=== PATIENT | male | born 1965 | race Caucasian/White ===

== ENCOUNTER 2019-11-27 16:17 | Inpatient (IN) | payer BC ==
[~2019-11-27] VITALS: Ht 180.3 cm; Wt 109.0 kg
--- NOTE | 2019-11-27 16:17 | NUR ---
PT IMMEADIATELY TO TREATMENT AREA VIA WC
--- NOTE | 2019-11-27 16:30 | NUR ---
PT STATES HAS BEEN UNDER ALOT OF STRESS THE LAST FEW MONTHS. WAS OUT WALKING AROUND [place] TO BUY A HOUSE WHEN CHEST PAIN AND TINGLING IN FINGERS BEGAN
[2019-11-27 17:02] LABS: HEMATOCRIT 43.1 % (39.0-50.0); HEMOGLOBIN 14.5 g/dl (14.0-18.0); IMMATURE GRANULOCYTES 0.8 % (0.0-5.0); MEAN CELL VOLUME 88.7 fL CALC (80.0-100.0); MEAN CORPUSCULAR HGB 29.8 pG CALC (26.0-32.0); MEAN CORPUSCULAR HGB CONC 33.6 g/L CALC (32.0-36.0); NEUT# 15.32 thou/uL (1.82-7.42); RED BLOOD COUNT 4.86 mill/uL (4.70-6.10); RED CELL DISTRI WIDTH 12.4 % (11.5-15.5)
[2019-11-27 17:03] LABS: URINE BILIRUBIN - DIPSTICK NEGATIVE (NEGATIVE); URINE BLOOD DIPSTICK NEGATIVE (NEGATIVE); URINE COLOR YELLOW; URINE GLUCOSE - DIPSTICK NEGATIVE (NEGATIVE); URINE KETONE NEGATIVE (NEGATIVE); URINE LEUK ESTERASE NEGATIVE (NEGATIVE); URINE NITRITE - DIPSTICK NEGATIVE (Negative); URINE PROTEIN - DIPSTICK NEGATIVE (NEG-TRACE); URINE SPECIFIC GRAVITY >=1.030; URINE UROBILINOGEN - DIPSTICK 0.2 E.U./dL (0.2)
[2019-11-27 17:14] LABS: ALBUMIN 4.5 g/dL (3.2-5.0); ALKALINE PHOSPHATASE 102 u/l (38-126); ANION GAP 14 (6-22 (CALC)); BILIRUBIN, TOTAL 1.6 mg/dL (0.0-1.4); BUN 22 mg/dL (9-20); BUN/CREATININE RATIO 21 (12-20 (CALC)); CARBON DIOXIDE 24 mmol/l (22-30); CHLORIDE 104 mmol/l (95-108); CREATININE 1.1 mg/dL (0.7-1.3); GFR > 60 ML/MIN (>=60 (CALC)); GFR FOR AFR.AMER. > 60 ML/MIN (>=60 (CALC)); SGOT/AST 33 u/l (17-59); SODIUM 138 mmol/l (137-146); TOTAL PROTEIN 7.9 g/dL (6.3-8.2)
[2019-11-27 17:15] LABS: BARBITURATES NEGATIVE (NEGATIVE); COCAINE NEGATIVE (NEGATIVE); METHADONE NEGATIVE (NEGATIVE); OXCYCODONE NEGATIVE (NEGATIVE); TETRAHYDROCANNABIONOL NEGATIVE (NEGATIVE); TRICYLIC ANTIDEPRESSANTS NEGATIVE (NEGATIVE)
[2019-11-27 17:26] LABS: MYOGLOBIN 107 ng/mL (0 - 121)
--- NOTE | 2019-11-27 17:27 | NUR ---
PT RESTING QUIETLY ON STRETCHER. HR REMAINS IN THE 120'S AFTER MEDICATED
[2019-11-27 17:45] LABS: TSH, 3RD GENERATION 1.42 uIU/mL (0.47 - 4.68)
--- NOTE | 2019-11-27 18:46 | NUR ---
PT RESTING QUIETLY ON STRESTCHER, WAITING XRAY RESULTS
--- NOTE | 2019-11-27 19:30 | NUR ---
PT AGREES TO BE ADMITTED. AWAITING ADMISSION ORDERS
--- NOTE | 2019-11-27 20:00 | NUR ---
AWAITING ADMISSION ORDERS FOR ADMISSION
--- NOTE | 2019-11-27 20:54 | NUR ---
AWAITING ROOM ASSIGNEMENT FOR REPORT AND ADMISSION
--- NOTE | 2019-11-27 21:29 | NUR ---
WAITING BED ASSIGNEMNT FOR ADMISSION. Lai PUGH SUPERVISION AWARE
--- NOTE | 2019-11-27 21:43 | NUR ---
REPORT TO FELICIA MARTÍNEZ. PT TO GO TO MS 289
--- NOTE | 2019-11-27 22:00 | NUR ---
TO MS VIA W/C. TELEMERTY IN PLACE. PT THANKED STAFF FOR CARE
[2019-11-27 22:03] VITALS: BP 132/84
--- NOTE | 2019-11-27 22:15 | NUR ---
PT ARRIVED TO UNIT @ 2202 VIA WC, ACCOMPANIED BY RN. REPORT AND SBAR RECEIVED PRIOR TO PT'S ARRIVAL FROM Brianna BYRNE RN @ 2141. PT ADMITTED TO ROOM 289. ORIENTED TO UNIT AND ROOM. PLAN OF CARE REVIEWED. DENIES NEEDS @ THIS TIME. CALL ALLEN WITHIN REACH. AGREES TO CALL PRN.
[2019-11-27 23:34] VITALS: BP 91/55
[2019-11-28] VITALS (25 sets, daily range): BP systolic 127–170; BP diastolic 56–101
--- NOTE | 2019-11-28 00:08 | NUR ---
TEMP 100.5, PT C/O COLD. OTHERWISE ASYMPTOMATIC. WILL CON'T TO MONITOR.
--- NOTE | 2019-11-28 01:05 | NUR ---
ORAL TEMP 101.9, CON'T TO C/O "COLD", REMAINS ASYMPTOMATIC OTHERWISE.
--- NOTE | 2019-11-28 01:15 | NUR ---
ELEVATED TEMP REPORTED TO DR. FREDERICK ALONG W/ PT'S OTHER HEMODYNAMICS AND REVIEW OF RECENT LAB RESULTS AND RADIOLOGIC EXAMS. ORDERS FOR LACTIC ACID AND BLOOD CX'S NOW, U/A, APAP PRN FOR FEVER, AND ROCEPHIN 1GM IV DAILY- TO BE STARTED AFTER BCX AND U/A COLLECTED.
--- NOTE | 2019-11-28 01:30 | NUR ---
[employer]IAL [employer] COMMUNITY MANAGER IN TO DRAW LACTIC ACID AND SECOND SET OF BLOOD CX, SPECIMEN CUP PROVIDED TO PT FOR URINE SAMPLE. PT DECLINES APAP, STATES "TYLENOL CAN UPSET MY STOMACH AND I FEEL FINE." OFFERED PT PRN ATIVAN FOR ANXIETY, PT AGREES, SEE MAR FOR ADMIN.
--- NOTE | 2019-11-28 03:45 | NUR ---
TEMP 101.2, URINE COLLECTED AND SENT TO LAB AND ROCEPHIN 1GM IV ADMINISTERED, SEE MAR. PT CON'T TO DECLINE APAP FOR FEVER. DENIES FURTHER NEEDS @ THIS TIME. CALL ALLEN WITHIN REACH, AGREES TO CALL PRN.
[2019-11-28 04:49] LABS: URINE BILIRUBIN - DIPSTICK NEGATIVE (NEGATIVE); URINE BLOOD DIPSTICK TRACE-INTACT (NEGATIVE); URINE CLARITY CLEAR; URINE COLOR YELLOW; URINE GLUCOSE - DIPSTICK NEGATIVE (NEGATIVE); URINE KETONE NEGATIVE (NEGATIVE); URINE LEUK ESTERASE NEGATIVE (Negative); URINE NITRITE - DIPSTICK NEGATIVE (Negative); URINE PH 5.5 (4.5-8.0); URINE PROTEIN - DIPSTICK NEGATIVE (NEG-TRACE); URINE SPECIFIC GRAVITY 1.025; URINE UROBILINOGEN - DIPSTICK 0.2 E.U./dL (0.2)
--- NOTE | 2019-11-28 07:32 | NUR ---
SPOKE WITH DR ROSEN RE: NO BEDS AVAILABLE AT [facility]WHERE WOULD U LIKE US TO TRY , [facility]. THEIR BEDS ARE FULL EXPECTING DISCHARGES WILL KEEP US INFORMED.
--- NOTE | 2019-11-28 07:43 | NUR ---
PT ENDORSED TO Patrick APONTE LPN, DURING HAND-OFF REPORT CRITICAL LAB VALUE CALLED. TROPONIN 0.260. PT DENIES CHEST PAIN. VSS. NO DISTRESS. DR. ROSEN INFORMED AND ORDERS RECEIVED TO TX TO [facility], EKG NOW, CONSULT CARDIOLOGY ONCE RECEIVED AT RECEIVING FACILITY. EDUCATION PROVIDED TO PT ON LAB RESULTS AND TRANSFER. PT VERBALIZES UNDERSTANDING. CALL ALLEN WITHIN REACH, AGREES TO CALL PRN.CARE OF PT TURNED OVER TO Patrick APONTE LPN.
--- NOTE | 2019-11-28 07:45 | NUR ---
ASSESSMENT IS COMPLETED: IV SITE IS FREE FROM REDNESS OR EDEMA. HR IS IRREGULAR, FAST. ABD IS SOFT WITH ACTIVE BS. BREATH SOUNDS ARE CLEAR,BILATERALLY.NO C/O SOB OR CP. TELE MONITOR IN PLACE. INFORMED OF THE TRANSFER TO ANOTHER HOSPITAL DUE TO TROPONIN ELEVATION. VERBALIZED UNDERSTANDING
--- NOTE | 2019-11-28 08:02 | NUR ---
CALLED [facility] WAS TOLD THEY WERE FULL. TO TRY A DIFFERENT HOSPITAL
--- NOTE | 2019-11-28 08:06 | NUR ---
CALLED [facility] REGARDING A TRANSFER TO THERE FACILITY. SPOKE TO THE PC SUPPORT SPECIALIST AND WAS TOLD DAIRY AND FOOD LABORATORY ASSISTANT WAS ON A CONFERENCE CALL. GAVE NAME OF PT AND CALL BACK NUMBER TO PC SUPPORT SPECIALIST. WAS TOLD TO GIVE HER ABOUT 5 MINUTES AND THEY WILL CALL BACK TO GET REST OF INFORMATION ON PT. CALLED NUMBER AT [phone].
--- NOTE | 2019-11-28 08:10 | NUR ---
[facility] PERFORMANCE CONSULTANT TREY CALLED BACK AT [phone] GAVE HER ALL INFORMATION ON THIS PT FOR TRANSFER. WAS TOLD BY TREY THAT THEY WERE FULL WELL BUT THEY SHOULD HAVE SOME PENDING DISCHARGES. WAS TOLD THEY WILL KEEP US UPDATED REGARDING THE TRANSFER. ALSO WAS TOLD TO FAX A FACE SHEET FOR THE PT TO [phone]. ALREADY FAX AND RECEIVED FACE SHEET.
--- NOTE | 2019-11-28 09:17 | NUR ---
SPOKE WTIH DR ROSEN RE:NO BEDS IN [facility] WILL KEEP CHECKING. INQUIRED IF SHE WANTED ME TO SEND THE PT TO ICU , STATED" YES THAT IS FINE I AM N MY WAY". NEW ORDERS FOR MEDICATION TO BE GIVEN. ALSO EKG. GAVE VERBAL REPORT TO [facility] DELIA DUARTE. TRANSPORTED VIA BED, PT IS ASYMPTOMATIC. PT INQUIRED " IF HE COULD WALK OVER THERE" EXPLAINED HE NEEDED TO GO OVER IN THE BED UNTIL WE FIND A PLACE. PT ALSO INQUIRED ABOUT " ANOTHER HOSPITAL [place] FROM" INSTRUCTED HIM TO TALK WITH DR ROSEN WHEN SHE COMES.
--- NOTE | 2019-11-28 09:33 | NUR ---
PT TRANSFERED TO ICU3 FROM [facility]. BEDSIDE REPORT RECEIVED FROM DUNIA ARAUJO. PT PLACED ON MONITOR. EKG COMPLETED. NO DISTRESS NOTED. PT ON RA. PT DENIES CHEST PAIN AT THIS TIME. NO SOB NOTED. PT EDUCATED ON ICU STATUS. WILL CONTINUE TO MONITOR.
--- NOTE | 2019-11-28 09:47 | NUR ---
DR NOLAN CALLED. NO ANSWER
--- NOTE | 2019-11-28 10:20 | NUR ---
DR. NOLAN AT BEDSIDE TO ASSESS PT
[2019-11-28 10:28] LABS: HEMATOCRIT 41.8 % (39.0-50.0); HEMOGLOBIN 13.8 g/dl (14.0-18.0); IMMATURE GRANULOCYTES 0.4 % (0.0-5.0); MEAN CELL VOLUME 89.9 fL CALC (80.0-100.0); MEAN CORPUSCULAR HGB 29.7 pG CALC (26.0-32.0); RED BLOOD COUNT 4.65 mill/uL (4.70-6.10)
[2019-11-28 11:21] LABS: ACT PARTIAL THROMBO TIME 29.4 SECONDS (20.0-32.5); INTERNATIONAL NORMALIZED RATIO 1.1 RATIO (0.7-1.3); PROTHROMBIN TIME 11.5 SECONDS (9.0-12.5)
--- NOTE | 2019-11-28 12:45 | NUR ---
PT RESTING IN BED WITH EYES CLOSED. NO DISTRESS NOTED. PT DENIES CHEST PAIN AT THIS TIME. HEPARIN GTT INFUSING. WILL CONTINUE TO MONITOR.
--- NOTE | 2019-11-28 13:28 | NUR ---
CALLED [facility] REGARDING AN UPDATE FOR RIGO. SPOKE TO TREY STATED THEY JUST RECEIVED SOME DISCHARGES IN THE CARDIAC FLOOR AND IS LOOKING AT THE REQUEST NOW AND WILL CALL BACK FOR BED.
--- NOTE | 2019-11-28 13:55 | NUR ---
CALLED DR. NOLAN UPDATED HER THAT [facility] WILL NO ACCEPT PATIENT AT THIS TIME. PER DR. NOLAN DRAW A TROPONIN LEVEL AND NOTIFY HER OF RESULTS.
--- NOTE | 2019-11-28 15:10 | NUR ---
DR. NOLAN NOTIFIED OF PT TROPONIN 0.207. PER DR NOLAN, NO NEED TO TRANSFER PT TO [facility] AT THIS TIME. PT TROPONIN TRENDING DOWN. PT ASYMPOMATIC. NO EKG CHANGES. BETA BLOCKERS AND ASPRIN ORDERED. WILL CONTINUE TO MONITOR.
--- NOTE | 2019-11-28 16:30 | NUR ---
PT RESTING IN BED, NO DISTRESS NOTED. PT STATES HE IS FEELING BETTER. DENIES PAIN AT THIS EMMA NO CHEST PAIN. WILL CONTINUE TO MONITOR.
--- NOTE | 2019-11-28 18:30 | NUR ---
PT RESTING IN BED. NO DISTRESS NOTED. PT VOIDING VIA URINAL. DENIES PAIN. NO CHEST PAIN. PER DR. NOLAN ADENOSINE NOT GIVEN TODAY. NO BM THIS SHIFT. PT EDUCATED ON HEPARIN GTT AND BLOOD DRAW TIMES. ALL QUESTIONS ANSWERED. REPORT TO BE GIVEN TO NIGHT RN.
--- NOTE | 2019-11-28 19:00 | NUR ---
PATIENT LAYS IN BED, CONVERSATES WITH VISITORS. CALL LIGHT WITHIN REACH.
--- NOTE | 2019-11-28 19:10 | NUR ---
PATIENT LAYS WITH HOB 45 DEGREES, LAYS CALMLY AND WATCHES TV. IS LAERT AND ORIENTED X4, ON ROOM AIR, SATS GREATER THAN 95%. DENIES CHEST PAIN, NO SOB NOTED. HEAD TO TOE NURSING ASSESSMENT PERFORMED. POC FOR TONIGHT DISCUSSED, PATIENT AGREES. ALL QUESTIONS ANSWERED. REPOSITIONS SELF. RAC AND RH IV'S INTACT. HEPARIN DRIP INFUSING PROPERLY. ST ON TELEMETRY. NO NEEDS AT THIS TIME. CALL LIGHT WITHIN REACH.
--- NOTE | 2019-11-28 20:06 | NUR ---
PATIENT ABLE TO SWALLOW HIS LISINOPRIL, WAS EDUCATED ABOUT IT AND AGREES. NO COMPLAINTS OF PAIN, ICED WATER PROVIDED, AND CUP OF ICE PROVIDED PER REQUEST, VOIDED 200 ML IN URINAL. CALL LIGHT WITHIN REACH.
[2019-11-28 20:49] LABS: ALBUMIN 3.7 g/dL (3.2-5.0); ALKALINE PHOSPHATASE 109 u/l (38-126); ANION GAP 11 (6-22 (CALC)); BILIRUBIN, TOTAL 1.5 mg/dL (0.0-1.4); BUN 14 mg/dL (9-20); BUN/CREATININE RATIO 14 (12-20 (CALC)); CARBON DIOXIDE 27 mmol/l (22-30); CHLORIDE 101 mmol/l (95-108); GFR > 60 ML/MIN (>=60 (CALC)); GFR FOR AFR.AMER. > 60 ML/MIN (>=60 (CALC)); POTASSIUM 3.7 mmol/l (3.5-5.1); SGOT/AST 75 u/l (17-59); SODIUM 135 mmol/l (137-146); TOTAL PROTEIN 6.9 g/dL (6.3-8.2)
--- NOTE | 2019-11-28 20:52 | NUR ---
JAMES PANDYA FROM LAB CALLED TO REPORT CRITICAL TROP WHICH IS TRENDING DOWN.
--- NOTE | 2019-11-28 20:59 | NUR ---
PATIENT ABLE TO SWALLOW HIS MEDICATIONS DUE. EDUACTED ON THEM, AGREES. DENIES CHEST PAIN, NOTIFIED HIM OF TROPONIN TRENDING DOWN. NO NEEDS OR COMPLAINTS AT THIS TIME. CALL LIGHT WITHIN REACH.
--- NOTE | 2019-11-28 22:46 | NUR ---
PATIENT LAYS WITH HOB NEAR 30 DEGREES. NO ACUTE DISTRESS SHOWN, DENIES CHEST PAIN. WHILE FIXING HIS TELEMETRY LEADS, I OBSERVED HIS CHEST WAS SWEATY, WHEN ASKED IF HE WAS HOT HE STATES, "A LITTLE," ALSO ASKED IF HE NORMALLY SWEATS AT NIGHT AND HE STATES, "SOMETIMES." CALL LIGHT WITHIN REACH. WILL CONTINUE TO MONITOR.
[2019-11-29] VITALS (15 sets, daily range): BP systolic 103–144; BP diastolic 53–92
--- NOTE | 2019-11-29 00:27 | NUR ---
PATIENT LAYS ON HIS LEFT SIDE. RESTS WITH EYES CLOSED, AWAKENS EASILY WHEN SPOKEN TO. NO CPLAINTS OR NEEDS AT THIS TIME. CALL LIGHT WITHIN REACH.
--- NOTE | 2019-11-29 01:11 | NUR ---
[id number]: PATIENT GOT UP TO USE HIS URINAL AND ACCIDENTALLY PULLED BOTH OF HIS IV'S ON HIS R-ARM. BLOOD DRIPPING ON BED, FLOOR, GOWN, ARM. CHANGED LINEN, NEW GOWN, WASHED HIS ARM UP. NEW IV SITE ON RFA 22G, HEPARIN DRIP AND ANTIBIOTIC COMPATIBLE, NOW INFUSING. DENIES CHEST PAIN, NO OTHER NEEDS AT THIS MOMENT. CALL LIGHT WITHIN REACH.
[2019-11-29 02:54] LABS: CHOLESTEROL HDL RATIO 5.9 (<4.4 (CALC))
--- NOTE | 2019-11-29 05:57 | NUR ---
PATIENT LAYS WITH HOB 30 DEGREES. ON RA. RESTS WITH EYES CLOSED. AWAKENS EASILY WHEN SPOKEN TO. NO COMPLAINTS OF PAIN, NO SOB NOTED. NO ACUTE DISTRESS SHOWN. NO NEEDS AT THIS TIME. CALL LIGHT WITHIN REACH.
[2019-11-29 07:19] LABS: HEMATOCRIT 43.1 % (39.0-50.0); HEMOGLOBIN 13.8 g/dl (14.0-18.0); IMMATURE GRANULOCYTES 0.8 % (0.0-5.0); MEAN CELL VOLUME 91.9 fL CALC (80.0-100.0); MEAN CORPUSCULAR HGB 29.4 pG CALC (26.0-32.0); NEUT# 5.38 thou/uL (1.82-7.42); RED BLOOD COUNT 4.69 mill/uL (4.70-6.10)
--- NOTE | 2019-11-29 07:19 | NUR ---
PT SLEEPING IN BED ON RIGHT SIDE. NO S/S OF DISTRESS AT THIS TIME. VSS. CALLBELL W/IN REACH. WILL CONTINUE TO MONITOR.
[2019-11-29 07:30] LABS: ALBUMIN 3.8 g/dL (3.2-5.0); ALKALINE PHOSPHATASE 143 u/l (38-126); BILIRUBIN, TOTAL 1.3 mg/dL (0.0-1.4); BUN 14 mg/dL (9-20); BUN/CREATININE RATIO 14 (12-20 (CALC)); CHLORIDE 106 mmol/l (95-108); GFR > 60 ML/MIN (>=60 (CALC)); GFR FOR AFR.AMER. > 60 ML/MIN (>=60 (CALC)); POTASSIUM 3.9 mmol/l (3.5-5.1); SGOT/AST 116 u/l (17-59); SODIUM 135 mmol/l (137-146); TOTAL PROTEIN 7.3 g/dL (6.3-8.2)
[2019-11-29 07:31] LABS: ANION GAP 13 (6-22 (CALC)); CARBON DIOXIDE 20 mmol/l (22-30)
--- NOTE | 2019-11-29 07:47 | NUR ---
LAB @BEDSIDE FOR PTT & TROP DRAW.
--- NOTE | 2019-11-29 07:56 | NUR ---
ASSESSMENT COMPLETE. PT DENIES PAIN. STATES HE DOENT TAKE ANY MEDICATIONS AT HOME. PT HAS FOOD FROM [employer] ON HIS BEDSIDE TABLE INCLUDING 2L SPRITE & BOX OF VINNIE ITS. PT ABLE TO SIT UP ON SIDE OF BED BY SELF FOR BREAKFAST.
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
--- NOTE | 2019-11-29 09:02 | NUR ---
EXPLAINED TO PT RE: TROPONINS & EDUCATED PT ON AM MEDS. PT STATES HE WANTS TO GO HOME TODAY. PT STATES HE WANTS TO BE A FULL CODE IF ANYTHING SHOULD HAPPEN.
--- NOTE | 2019-11-29 10:30 | NUR ---
PT AMBULATED TO BATHROOM FOR BM WITH STEADY GAIT W/OUT INCIDENT. WILL CONTINUE TO MONITOR.
--- NOTE | 2019-11-29 12:02 | NUR ---
pt continues to deny any pain or sob. neg assessment. pt repositioned self to sit at side of bed for lunch. no needs/concerns at this time.
--- NOTE | 2019-11-29 12:31 | NUR ---
PTT ORDER PLACED FOR TOMORROW AFTER 2 CONSECUTIVE THERAPUTIC PTT RESULTS. HEPARIN DRIP REMAINS AT 1650UNITS/HR.
--- NOTE | 2019-11-29 13:50 | NUR ---
PT SITTING UP IN BED, WATCHING TV, PLAYING ON CELLPHONE. DENIES PAIN. NO NEEDS/CONCERNS AT THIS TIME. HEPARIN DRIP RUNNING TO VIABLE IV SITE. WILL CONTINUE TO MONITOR.
--- NOTE | 2019-11-29 17:07 | NUR ---
DR RILEY @BEDSIDE, PT STATES HE IS READY TO GO HOME.
[2019-11-29] MEDS ORDERED: LISINOPRIL20 M1 PO (17:09)
[2019-11-29] MEDS ORDERED: LIPITOR20 MG PO (17:09)
[2019-11-29] MEDS ORDERED: ADLT ASA LOW81 MG PO (17:09)
[2019-11-29] MEDS ORDERED: LOPRESSOR 550 MG/TAB PO (17:09)
[2019-11-29] MEDS ORDERED: AMOX/K CLAV875 M1 PO (17:09)
--- NOTE | 2019-11-29 18:08 | NUR ---
IV DC'D, TIP INTACT, PRESSURE DRESSING APPLIED. PT EDUCATED ON FALL & BLEEDING PREVENTION POST HEPARIN DRIP. PT EDUCATED ON S/S OF INTERNAL BLEEDING & WHEN TO RETURN TO THE ER.
--- NOTE | 2019-11-29 18:19 | NUR ---
PT STATES HIS FRIEND, ASIA SHAHID, IS COMING TO PICK HIM UP.
--- NOTE | 2019-11-29 18:20 | NUR ---
PT EDUCATED ON DC INSTRUCTIONS INCLUDING NEW RX & IMPORTANCE OF F/UP BY COWORKER.
--- NOTE | 2019-11-29 18:27 | NUR ---
PT AMBULATED OUT OF UNIT WITH STEADY GAIT; REFUSED WC. PT DIRECTED TO ER WAITING AREA WHERE HIS FRIEND IS PICKING HIM UP. PT THANKED STAFF FOR THE GREAT SERVICE.
== END 2019-11-29 18:27 | disposition home or self-care (01) | DRG 871 ==
LOC: ED 16:17 → ED-I 17:12 → ED 19:34 → MS2 19:35 → ICU 11-28 09:45
PROVIDERS: Emergency Medicine; Internal Medicine; ADMIT Internal Medicine; ATTEND Internal Medicine
DX: A41.9 Sepsis, unspecified organism (principal); I21.4 Non-ST elevation (NSTEMI) myocardial infarction; I16.1 Hypertensive emergency; R65.20 Severe sepsis without septic shock; I10 Essential (primary) hypertension; K04.7 Periapical abscess without sinus; K02.9 Dental caries, unspecified; Z82.49 Family history of ischemic heart disease and other diseases of the circulatory system
CPT/HCPCS: J0153; J1644; Q9967